=== PATIENT | male | born 1960 ===

== ENCOUNTER 2019-05-09 16:53 | Inpatient (IN) | payer OTHER ==
[~2019-05-09] VITALS: Ht 177.8 cm; Wt 239.0 kg
[2019-05-17] MEDS ORDERED: AMOX1TAB5 PO (16:26)
[2019-05-17] MEDS ORDERED: FLUCONAZOLE100 MG PO (16:27)
== END 2019-05-17 19:51 | disposition home or self-care (01) | DRG 593 ==
LOC: SURG 16:53
PROVIDERS: ADMIT Internal Medicine
PROC: BW21ZZZ Computerized Tomography (CT Scan) of Abdomen and Pelvis (ICD-10-PCS; principal; 2019-05-09)
PROC: B54DZZZ Ultrasonography of Bilateral Lower Extremity Veins (ICD-10-PCS; 2019-05-09)
PROC: CW1N1ZZ Planar Nuclear Medicine Imaging of Whole Body using Technetium 99m (Tc-99m) (ICD-10-PCS; 2019-05-14)
DX: L97.528 Non-pressure chronic ulcer of other part of left foot with other specified severity (principal); L03.115 Cellulitis of right lower limb; B96.5 Pseudomonas (aeruginosa) (mallei) (pseudomallei) as the cause of diseases classified elsewhere; B96.89 Other specified bacterial agents as the cause of diseases classified elsewhere; I87.2 Venous insufficiency (chronic) (peripheral); K76.0 Fatty (change of) liver, not elsewhere classified; K40.90 Unilateral inguinal hernia, without obstruction or gangrene, not specified as recurrent; I11.9 Hypertensive heart disease without heart failure; E78.49 Other hyperlipidemia; B35.3 Tinea pedis; M10.9 Gout, unspecified; F17.210 Nicotine dependence, cigarettes, uncomplicated; E66.8 Other obesity

== ENCOUNTER 2019-07-08 20:25 | Emergency (ER) | payer OTHER ==
[~2019-07-08] VITALS: Ht 180.3 cm; Wt 108.0 kg
[~2019-07-08 20:25] MED LIST: AMOX1TAB5 PO; FLUCONAZOLE100 MG PO
[2019-07-08] MEDS ORDERED: LOSARTAN-HCTZ1 EACH (21:03)
[2019-07-08] MEDS ORDERED: METFORMIN HCL500 MG (21:03)
== END 2019-07-09 00:07 | disposition home or self-care (01) ==
LOC: ER 20:25
DX: J18.0 Bronchopneumonia, unspecified organism (principal)

== ENCOUNTER 2019-08-16 08:53 | Day surgery (SDC) | payer OTHER ==
[~2019-08-16 08:53] MED LIST changes: +LOSARTAN-HCTZ1 EACH; +METFORMIN HCL500 MG
[2019-08-16] MEDS ORDERED: TYLENOL ARTHRI650 MG PO (13:00)
[2019-08-16] MEDS ORDERED: MIRALAX17 GM PO (13:00)
[2019-08-16] MEDS ORDERED: ULTRAM50 MG PO (13:00)
[2019-08-16] MEDS ORDERED: NEURONTIN300 MG PO (13:00)
[2019-08-16] MEDS ORDERED: ZOFRAN4 MG PO (13:00)
== END 2019-08-16 17:15 | disposition home or self-care (01) ==
LOC: CIR.AMB 08:53
DX: K40.20 Bilateral inguinal hernia, without obstruction or gangrene, not specified as recurrent (principal); D17.6 Benign lipomatous neoplasm of spermatic cord

== ENCOUNTER 2025-03-01 08:43 | Outpatient (CLI) | payer OTHER ==
[~2025-03-01 08:43] MED LIST changes: +MIRALAX17 GM PO; +NEURONTIN300 MG PO; +TYLENOL ARTHRI650 MG PO; +ULTRAM50 MG PO; +ZOFRAN4 MG PO
== END 2025-03-01 09:01 | disposition home or self-care (01) ==
LOC: MRI 08:43
PROVIDERS: ATTEND Physical Medicine & Rehabilitation
DX: M54.2 Cervicalgia (principal)
CPT/HCPCS: 72141